=== PATIENT | female | born 1995 | race Hispanic/Latino ===

== ENCOUNTER 2022-03-04 13:30 | Inpatient (IN) | payer OTHER ==
[~2022-03-04 13:30] MED LIST: Bupivacaine 0.25% HCL 30 ML VIAL ONE; Bupivacaine/Epinephrine 0.25% 30 ML VIAL ONE; Lidocaine 2% PF 5 ML VIAL ONE; ePHEDrine Sulfate 50 MG/10 ML VIAL ONE
[2022-03-04 14:38] VITALS: BMI 51.8
[2022-03-04] MEDS ORDERED: NS w/ Oxytocin 30 units 500 ML ONE (15:01)
[2022-03-04 15:15] LABS: SARS-CoV-2 NAA Rapid Test Not Detected (NotDetected)
[2022-03-04] MEDS ORDERED: Ibuprofen 800 MG TAB PO PRN (15:15)
[2022-03-04] MEDS ORDERED: hydrALAZINE 20 MG/ML VIAL SLOW IVP PRN (15:15)
[2022-03-04] MEDS ORDERED: Butorphanol Tartrate 1 MG/ML VIAL SLOW IVP PRN (15:15)
[2022-03-04] MEDS ORDERED: Lactated Ringer's 1,000 ML IV SCH (15:15)
[2022-03-04] MEDS ORDERED: HYDROcodone/Acetaminophen 5/325 mg Tablet PO PRN ×2 (15:15)
[2022-03-04] MEDS ORDERED: Acetaminophen 500 MG TAB PO PRN (15:15)
[2022-03-04] MEDS ORDERED: NS w/ Oxytocin 30 units 500 ML IV SCH (15:15)
[2022-03-04] MEDS ORDERED: Misoprostol 200 MCG TAB RC PRN (15:15)
[2022-03-04] MEDS ORDERED: Diphenoxylate HCl/Atropine Tablet PO PRN ×2 (15:15)
[2022-03-04 15:57] LABS: Hemoglobin 10.6 g/dL (12.0-15.5); Mean Corpuscular HGB CONC 33.5 g/dL (32.0-36.0); Mean Corpuscular Hemoglobin 28.5 pg (27.0-33.0); Mean Corpuscular Volume 84.9 fl (81.6-98.3); Mean Platelet Volume 10.6 fl (7.4-10.4); Platelet Count 213 10x3/uL (150-450); RBC Distribution Width 14.5 % (11.5-14.5); Red Blood Cell (RBC) Count 3.72 10x6/uL (3.90-5.03); White Blood Cell (WBC) Count 7.5 10x3/uL (3.5-10.5)
[2022-03-04 16:24] LABS: HBSAg Index 0.19 S/CO (0-0.99); Hep B Surf Ag Non-Reactive S/CO (NonReactive); Syphilis Antibody Nonreactive (Nonreactive); Syphilis Antibody Index 0.04 S/CO (<1.00 Non-Reactive)
[2022-03-04] MEDS ORDERED: Docusate 100 MG CAP PO SCH (21:00)
[2022-03-04] MEDS ORDERED: Fentanyl 2 mcg/Bup 0.1% Cadd 100 ML ONE (21:37)
[2022-03-04] MEDS ORDERED: Moisturizing Cream (Eucerin) 113 GM JAR TOP PRN (22:56)
[2022-03-04] MEDS ORDERED: Naloxone HCl 0.4 mg/ml Vial IVP PRN ×2 (22:56)
[2022-03-04] MEDS ORDERED: diphenhydrAMINE 50 MG/ML VIAL IVP PRN (22:56)
[2022-03-04] MEDS ORDERED: Lactated Ringer's 500 ML IV PRN (22:56)
[2022-03-04] MEDS ORDERED: Acetaminophen 325 MG TAB PO PRN (22:56)
[2022-03-04] MEDS ORDERED: Ondansetron PF 4 MG/2 ML Vial IVP PRN (22:56)
[2022-03-04] MEDS ORDERED: Promethazine HCl 25 MG/ML VIAL IM PRN (22:56)
[2022-03-04] MEDS ORDERED: ePHEDrine Sulfate 50 MG/10 ML VIAL SLOW IVP PRN (22:56)
[2022-03-04] MEDS ORDERED: Fentanyl 2 mcg/Bupivacaine 0.1% Cassette 100 ML EPIDURAL SCH (23:00)
[2022-03-04] MEDS ORDERED: Communication Order-Pharmacy FS SCH (23:00)
[2022-03-05] MEDS ORDERED: Methylergonovine 0.2 MG/ML VIAL ONE (05:01)
[2022-03-05] MEDS ORDERED: Carboprost 250 MCG/ML AMP ONE (05:01)
[2022-03-05] MEDS ORDERED: Misoprostol 200 MCG TAB ONE (05:02)
[2022-03-05] MEDS ORDERED: Bisacodyl 10 MG SUPP PR PRN (05:03)
[2022-03-05] MEDS ORDERED: Milk Of Magnesia 30 ML UDCUP PO PRN (05:03)
[2022-03-05] MEDS ORDERED: hydrALAZINE 20 MG/ML VIAL SLOW IVP PRN (05:03)
[2022-03-05] MEDS ORDERED: Zolpidem Tartrate 5 MG TAB PO PRN (05:03)
[2022-03-05] MEDS ORDERED: HYDROcodone/Acetaminophen 5/325 mg Tablet PO PRN ×2 (05:03)
[2022-03-05] MEDS ORDERED: Lanolin Ointment 7 GM TUBE TOP PRN (05:03)
[2022-03-05] MEDS ORDERED: Preparation H Ointment 28 GM TUBE PR PRN (05:03)
[2022-03-05] MEDS ORDERED: Boostrix 0.5 ML (Tdap) VIAL (>/=7 yrs of age) IM ONE (05:03)
[2022-03-05] MEDS ORDERED: Ondansetron PF 4 MG/2 ML Vial IVP PRN (05:03)
[2022-03-05] MEDS ORDERED: diphenhydrAMINE 25 MG CAP PO PRN (05:03)
[2022-03-05] MEDS ORDERED: Misoprostol 200 MCG TAB VAG PRN (05:03)
[2022-03-05] MEDS ORDERED: Benzocaine-Menthol 82.5 ML CAN TOP PRN (05:03)
[2022-03-05] MEDS ORDERED: NS w/ Oxytocin 30 units 500 ML IV SCH (06:15)
[2022-03-05] MEDS: Ferrous Sulfate 325 MG TAB PO SCH ×2 (09:41→18:30)
[2022-03-05] MEDS: Docusate 100 MG CAP PO SCH ×2 (09:44→20:38)
[2022-03-05] MEDS: Prenatal Vitamin 1 TAB PO SCH (09:44)
[2022-03-05] MEDS: Ibuprofen 800 MG TAB PO SCH ×3 (11:36→20:38)
[2022-03-06] MEDS: Ibuprofen 800 MG TAB PO SCH (05:12)
[2022-03-06 06:00] LABS: Hemoglobin 9.9 g/dL (12.0-15.5); Mean Corpuscular HGB CONC 32.6 g/dL (32.0-36.0); Mean Corpuscular Hemoglobin 28.4 pg (27.0-33.0); Mean Corpuscular Volume 87.1 fl (81.6-98.3); Mean Platelet Volume 10.7 fl (7.4-10.4); Platelet Count 150 10x3/uL (150-450); RBC Distribution Width 14.8 % (11.5-14.5); Red Blood Cell (RBC) Count 3.49 10x6/uL (3.90-5.03); White Blood Cell (WBC) Count 8.2 10x3/uL (3.5-10.5)
[2022-03-06 07:47] VITALS: BP 118/56; TEMP 98.2
[2022-03-06] MEDS: Ferrous Sulfate 325 MG TAB PO SCH (08:04)
[2022-03-06] MEDS: Docusate 100 MG CAP PO SCH (08:04)
[2022-03-06] MEDS: Prenatal Vitamin 1 TAB PO SCH (08:05)
== END 2022-03-06 11:20 | disposition home or self-care (01) | DRG 807 ==
LOC: CSHLD 13:30 → CSHPP 03-05 08:15
PROVIDERS: ADMIT Obstetrics & Gynecology; ATTEND Obstetrics & Gynecology
PROC: 3E033VJ Introduction of Other Hormone into Peripheral Vein, Percutaneous Approach (ICD-10-PCS; 2022-03-04)
PROC: 10E0XZZ Delivery of Products of Conception, External Approach (ICD-10-PCS; principal; 2022-03-05)
DX: O42.02 Full-term premature rupture of membranes, onset of labor within 24 hours of rupture (principal); Z37.0 Single live birth; Z3A.39 39 weeks gestation of pregnancy; D64.9 Anemia, unspecified; O99.02 Anemia complicating childbirth; E66.01 Morbid (severe) obesity due to excess calories; O99.214 Obesity complicating childbirth; Z79.899 Other long term (current) drug therapy; Z20.822 Contact with and (suspected) exposure to COVID-19
CPT/HCPCS: 51702; 85027; 86780; 86850; 86900; 86901; 87340; J2001; J2590; S0020; U0002